=== PATIENT | female | born 1940 | race Caucasian/White ===

== ENCOUNTER 2019-07-08 03:39 | Inpatient (IN) ==
[2019-07-08] MEDS ORDERED: Ipratropium/Albuterol Neb 3 ML IH ONE (03:50)
[2019-07-08 04:23] LABS: Basophils # 0.1 K/mcL (0.0-0.2); Basophils % 0.5 %; Eosinophils # 0.1 K/mcL (0.0-0.6); Eosinophils % 1.2 %; Hematocrit 43.2 % (35.3-44.9); Hemoglobin 14.4 g/dL (11.5-15.4); Immature Granulocytes % 0.9 % (0-4); Lymphocytes # 2.9 K/mcL (0.6-4.6); Lymphocytes % 24.6 %; Mean Corpuscular HGB Conc 33.3 g/dL (31.6-35.5); Mean Corpuscular Hemoglobin 31.9 pg (28.0-33.3); Mean Corpuscular Volume 95.8 fL (83.0-100.0); Mean Platelet Volume 11.1 fL (9.4-12.4); Monocytes # 0.5 K/mcL (0.0-1.3); Monocytes % 4.6 %; Platelet Count 328 K/mcL (140-400); Red Blood Count 4.51 M/mcL (3.82-4.97); Red Cell Distribution Width 12.4 % (11.5-14.5); Segmented Neutrophils % 68.2 %; White Blood Count 11.7 K/mcL (4.3-11.1)
[2019-07-08 04:29] LABS: Prothrombin Time 10.8 Seconds (9.4-12.1)
[2019-07-08 04:31] LABS: Activated Partial Thrombo Time 26.1 Seconds (26.0-36.0)
[2019-07-08 04:33] LABS: ABG Base Excess -2 mEq/L (-2 to 3); ABG HCO3 24 mEq/L (21-27); ABG Oxygen Saturation 96 % (95-98); ABG PCO2 44 mmHg (35-45); ABG PH 7.34 pH Units (7.32-7.45); ABG PO2 84 mmHg (85-104); ABG TCO2 25 mEq/L (20-26)
[2019-07-08 04:44] LABS: Bilirubin,Urine Negative (Negative); Blood,Urine Small (Negative); Clarity,Urine Clear (Clear); Color,Urine Dark Yellow (Yellow); Glucose,Urine (UA) 500 mg/dL (Normal); Ketones,Urine 15 mg/dL (Negative); Leukocyte Esterase,Urine Negative (Negative); Nitrite,Urine Negative (Negative); PH,Urine 5.5 pH Units (5.0-8.0); Protein,Urine 100 mg/dL (Neg-Trace); Specific Gravity,Urine 1.015 (1.010-1.025); Urobilinogen,Urine Normal (Normal)
[2019-07-08 04:45] LABS: BUN/Creatinine Ratio 24 (6-26); Blood Urea Nitrogen 17 mg/dL (8-23); Calcium 9.2 mg/dL (8.6-10.3); Carbon Dioxide 24 mEq/L (23-29); Chloride 103 mEq/L (98-107); Glucose 212 mg/dL (70-105); Osmolality,Calculated 296 (280-300); Potassium 3.9 mEq/L (3.5-5.1); Sodium 139 mEq/L (136-145); eGFR For African Americans > 60 (> 60); eGFR For Non-African Americans > 60 (> 60)
[2019-07-08 04:46] LABS: Hyaline Casts,Urine Few per lpf (None-Few); Squamous Epithelial Cell,Urine Many per lpf (None-Few)
[2019-07-08] MEDS ORDERED: Furosemide 40 MG/4 ML VIAL IVP ONE (04:50)
[2019-07-08] MEDS ORDERED: Azithromycin 500 MG in 0.9 % Sodium Chloride 250 ML IVPB ONE (04:50)
[2019-07-08] MEDS ORDERED: cefTRIAXone 1,000 MG in Water for inj. (sterile) 10 ML IVP ONE (04:50)
[2019-07-08 04:52] LABS: Troponin I 0.05 ng/mL (< 0.04)
[2019-07-08] MEDS ORDERED: Aspirin 81 MG TAB.CHEW PO ONE (04:52)
[2019-07-08 04:55] LABS: Bacteria,Urine Moderate per hpf (None-Few)
[2019-07-08] MEDS ORDERED: Isovue-370 500 ML BOTTLE IVP ONE (04:55)
[2019-07-08] MEDS ORDERED: Ondansetron 4 MG/2 ML VIAL IVP ONE (05:49)
[2019-07-08] MEDS ORDERED: Naloxone 0.4 MG/ML INJ IVP PRN (09:21)
[2019-07-08] MEDS ORDERED: Acetaminophen 325 MG TABLET PO PRN (09:50)
[2019-07-08 13:01] LABS: Estimated Average Glucose 123 mg/dl
[2019-07-08] MEDS: *HR* Heparin 5,000 UNIT/ML VIAL SQ SCH (16:47)
[2019-07-08] MEDS ORDERED: carvediloL 6.25 MG TABLET PO SCH (17:00)
[2019-07-08] MEDS ORDERED: Ondansetron 4 MG/2 ML VIAL IVP PRN (19:50)
[2019-07-08] MEDS ORDERED: Melatonin 3 MG TABLET PO ONE (19:51)
[2019-07-09] MEDS: *HR* Heparin 5,000 UNIT/ML VIAL SQ SCH ×2 (05:37→17:37)
[2019-07-09 05:54] LABS: Basophils % 0.1 %; Eosinophils % 0.2 %; Hematocrit 38.9 % (35.3-44.9); Immature Granulocytes % 0.3 % (0-4); Lymphocytes # 1.5 K/mcL (0.6-4.6); Lymphocytes % 17.3 %; Mean Corpuscular HGB Conc 31.9 g/dL (31.6-35.5); Mean Corpuscular Hemoglobin 30.9 pg (28.0-33.3); Mean Platelet Volume 11.4 fL (9.4-12.4); Monocytes # 0.9 K/mcL (0.0-1.3); Monocytes % 10.5 %; Neutrophils # 6.3 K/mcL (1.6-8.9); Platelet Count 282 K/mcL (140-400); Red Blood Count 4.01 M/mcL (3.82-4.97); Red Cell Distribution Width 12.7 % (11.5-14.5); Segmented Neutrophils % 71.6 %; White Blood Count 8.8 K/mcL (4.3-11.1)
[2019-07-09 05:55] LABS: Prothrombin Time 11.6 Seconds (9.4-12.1)
[2019-07-09 05:59] LABS: Hemoglobin 12.4 g/dL (11.5-15.4)
[2019-07-09 06:12] LABS: BUN/Creatinine Ratio 34 (6-26); Blood Urea Nitrogen 24 mg/dL (8-23); Calcium 8.8 mg/dL (8.6-10.3); Carbon Dioxide 28 mEq/L (23-29); Chloride 102 mEq/L (98-107); Glucose 103 mg/dL (70-105); Osmolality,Calculated 294 (280-300); Potassium 3.7 mEq/L (3.5-5.1); Sodium 140 mEq/L (136-145); eGFR For African Americans > 60 (> 60); eGFR For Non-African Americans > 60 (> 60)
[2019-07-09 06:13] LABS: Alanine Aminotransferase 13 Units/L (7-52); Albumin 3.7 g/dL (3.5-5.7); Albumin/Globulin Ratio 1.6 (1.1-2.2); Alkaline Phosphatase 59 Units/L (34-104); Aspartate Amino Transferase 21 Units/L (13-39); BUN/Creatinine Ratio 37 (6-26); Bilirubin,Total 1.3 mg/dL (0.3-1.0); Blood Urea Nitrogen 25 mg/dL (8-23); Calcium 8.8 mg/dL (8.6-10.3); Carbon Dioxide 28 mEq/L (23-29); Chloride 103 mEq/L (98-107); Chol/HDL Ratio 4.5 (0-4.9); Cholesterol 204 mg/dL (< 200); Globulin 2.3 g/dL (2.4-3.5); Glucose 103 mg/dL (70-105); HDL Cholesterol 45 mg/dL (40-59); LDL Cholesterol,Calculated 132 mg/dL (0-99); Osmolality,Calculated 295 (280-300); Potassium 3.7 mEq/L (3.5-5.1); Sodium 140 mEq/L (136-145); Triglycerides 137 mg/dL (< 150); eGFR For African Americans > 60 (> 60); eGFR For Non-African Americans > 60 (> 60)
[2019-07-09] MEDS ORDERED: Isovue-370 500 ML BOTTLE IVP ONE (06:39)
[2019-07-09] MEDS ORDERED: 0.9 % Sodium Chloride 250 ML IVC ONE (07:00)
[2019-07-09 07:35] LABS: Estimated Average Glucose 126 mg/dl
[2019-07-09] MEDS ORDERED: Furosemide 40 MG/4 ML VIAL IVP SCH (09:00)
[2019-07-09] MEDS: Aspirin Enteric Coated 81 MG Tablet PO SCH (09:03)
[2019-07-09] MEDS: Multivit/Ca/Min/Fe/FA 1 TAB TABLET PO SCH (09:03)
[2019-07-10] MEDS ORDERED: *HR* HYDROcodone/Acet 5/325 mg TABLET PO ONE (01:22)
[2019-07-10] MEDS ORDERED: Acetaminophen IV 1,000 MG/100 ML INFUS..BTL IVPB ONE (01:26)
[2019-07-10] MEDS: *HR* Heparin 5,000 UNIT/ML VIAL SQ SCH ×2 (05:36→17:12)
[2019-07-10] MEDS: Multivit/Ca/Min/Fe/FA 1 TAB TABLET PO SCH (07:52)
[2019-07-10] MEDS: Aspirin Enteric Coated 81 MG Tablet PO SCH ×2 (07:52→11:53)
[2019-07-10] MEDS: D5% in 0.9% NACL 1,000 ML IVC SCH (11:53)
[2019-07-10] MEDS: Insulin LISPRO 300 UNITS/3 ML VIAL SQ SCH (17:12)
[2019-07-10] MEDS: Gabapentin 300 MG CAPSULE PO SCH (20:49)
[2019-07-11] MEDS: Insulin LISPRO 300 UNITS/3 ML VIAL SQ SCH ×3 (01:22→11:56)
[2019-07-11 06:21] LABS: Basophils % 0.4 %; Eosinophils # 0.1 K/mcL (0.0-0.6); Eosinophils % 1.2 %; Hematocrit 39.9 % (35.3-44.9); Hemoglobin 12.9 g/dL (11.5-15.4); Immature Granulocytes % 0.3 % (0-4); Lymphocytes # 1.7 K/mcL (0.6-4.6); Lymphocytes % 21.9 %; Mean Corpuscular HGB Conc 32.3 g/dL (31.6-35.5); Mean Corpuscular Hemoglobin 31.7 pg (28.0-33.3); Mean Platelet Volume 10.9 fL (9.4-12.4); Monocytes # 1.1 K/mcL (0.0-1.3); Monocytes % 14.3 %; Neutrophils # 4.9 K/mcL (1.6-8.9); Platelet Count 267 K/mcL (140-400); Red Blood Count 4.07 M/mcL (3.82-4.97); Red Cell Distribution Width 12.2 % (11.5-14.5); Segmented Neutrophils % 61.9 %; White Blood Count 7.8 K/mcL (4.3-11.1)
[2019-07-11 06:40] LABS: BUN/Creatinine Ratio 57 (6-26); Blood Urea Nitrogen 29 mg/dL (8-23); Calcium 8.9 mg/dL (8.6-10.3); Carbon Dioxide 28 mEq/L (23-29); Chloride 106 mEq/L (98-107); Glucose 107 mg/dL (70-105); Magnesium 2.2 mg/dL (1.6-2.6); Osmolality,Calculated 298 (280-300); Phosphorous 3.2 mg/dL (2.7-4.5); Potassium 3.8 mEq/L (3.5-5.1); Sodium 141 mEq/L (136-145); eGFR For African Americans > 60 (> 60); eGFR For Non-African Americans > 60 (> 60)
[2019-07-11] MEDS: *HR* Heparin 5,000 UNIT/ML VIAL SQ SCH ×2 (07:24→17:01)
[2019-07-11] MEDS: D5% in 0.9% NACL 1,000 ML IVC SCH (07:26)
[2019-07-11] MEDS: Gabapentin 300 MG CAPSULE PO SCH (09:38)
[2019-07-11] MEDS: Aspirin Enteric Coated 81 MG Tablet PO SCH (09:38)
[2019-07-11] MEDS: Multivit/Ca/Min/Fe/FA 1 TAB TABLET PO SCH (09:38)
[2019-07-11] MEDS: Nystatin SUSP 5 ML UD.LIQ PO SCH ×2 (12:01→17:01)
[2019-07-11] MEDS ORDERED: carvediloL 6.25 MG TABLET GTUBE SCH (17:00)
[2019-07-11] MEDS ORDERED: Insulin LISPRO 300 UNITS/3 ML VIAL SQ SCH (20:00)
[2019-07-11 20:08] VITALS: BP 181/78
[2019-07-11] MEDS ORDERED: Gabapentin 300 MG CAPSULE GTUBE SCH (21:00)
[2019-07-12] MEDS ORDERED: Multivitamin Liquid 15 ML UDC GTUBE SCH (09:00)
== END 2019-07-11 22:35 | disposition short-term general hospital (02) | DRG 64 ==
LOC: 2NENU 03:39 → EMEROOARM 03:39 → 2ANU 07:50 → SUATTDRO 10:30
PROVIDERS: ADMIT Internal Medicine; ATTEND Internal Medicine

== ENCOUNTER 2022-02-19 09:55 | Inpatient (IN) ==
[2022-02-19] MEDS ORDERED: Naloxone 0.4 MG/ML INJ IVP PRN ×2 (15:36→16:00)
[2022-02-19] MEDS ORDERED: Acetaminophen 325 MG TABLET PO PRN (15:36)
[2022-02-19 15:37] LABS: Basophils % 0.2 %; Eosinophils # 0.2 K/mcL (0.0-0.6); Eosinophils % 2.3 %; Hematocrit 32.9 % (35.3-44.9); Hemoglobin 10.4 g/dL (11.5-15.4); Immature Granulocytes % 0.3 % (0-4); Lymphocytes # 1.8 K/mcL (0.6-4.6); Lymphocytes % 18.4 %; Mean Corpuscular HGB Conc 31.6 g/dL (31.6-35.5); Mean Corpuscular Hemoglobin 30.8 pg (28.0-33.3); Mean Corpuscular Volume 97.3 fL (83.0-100.0); Mean Platelet Volume 11.3 fL (9.4-12.4); Monocytes # 1.3 K/mcL (0.0-1.3); Neutrophils # 6.5 K/mcL (1.6-8.9); Platelet Count 328 K/mcL (140-400); Red Blood Count 3.38 M/mcL (3.82-4.97); Segmented Neutrophils % 65.8 %; White Blood Count 9.9 K/mcL (4.3-11.1)
[2022-02-19 16:00] LABS: BUN/Creatinine Ratio 38 (6-26); Blood Urea Nitrogen 28 mg/dL (8-23); Calcium 9.2 mg/dL (8.6-10.3); Carbon Dioxide 26 mEq/L (23-29); Chloride 104 mEq/L (98-107); Glucose 87 mg/dL (70-105); Osmolality,Calculated 293 (280-300); Potassium 4.3 mEq/L (3.5-5.1); Sodium 139 mEq/L (136-145); eGFR For African Americans > 60 (> 60); eGFR For Non-African Americans > 60 (> 60)
[2022-02-19] MEDS ORDERED: D5% in Water 1,000 ML IVC PRN (19:52)
[2022-02-19] MEDS ORDERED: *HR* Dextrose 50 % in Water (Syg) 50 ML SYRINGE IVP PRN (19:52)
[2022-02-19] MEDS ORDERED: Dextrose Gel 15 GM/37.5 ML TUBE PO PRN ×2 (19:52)
[2022-02-19] MEDS ORDERED: Heparin 25,000UNIT/250ML 1/2NS 25,000 UNIT/250 ML IV.SOLN IVC SCH ×2 (20:15→20:26)
[2022-02-19] MEDS: *HR* HYDROcodone/Acet 5/325 mg TABLET PO PRN (20:45)
[2022-02-19] MEDS: Melatonin 3 MG TABLET PO PRN (20:46)
[2022-02-19] MEDS: Ondansetron ODT 4 MG TAB.RAPDIS SL PRN (22:51)
[2022-02-19] MEDS: carvediloL 6.25 MG TABLET PO SCH ×2 (22:53→22:55)
[2022-02-19 23:28] LABS: INR 1.5; Prothrombin Time 16.6 Seconds (9.4-12.1)
[2022-02-19 23:29] LABS: Activated Partial Thrombo Time 29.2 Seconds (26.0-36.0)
[2022-02-19 23:33] LABS: Heparin anti-factor XA UFH > 2.00 IU/mL (0.30-0.70)
[2022-02-20] MEDS: Insulin LISPRO 300 UNITS/3 ML VIAL SUBQ SCH ×4 (01:22→18:28)
[2022-02-20 06:21] LABS: Hematocrit 30.2 % (35.3-44.9); Hemoglobin 9.4 g/dL (11.5-15.4); Mean Corpuscular HGB Conc 31.1 g/dL (31.6-35.5); Mean Corpuscular Hemoglobin 30.5 pg (28.0-33.3); Mean Corpuscular Volume 98.1 fL (83.0-100.0); Mean Platelet Volume 10.9 fL (9.4-12.4); Platelet Count 284 K/mcL (140-400); Red Blood Count 3.08 M/mcL (3.82-4.97); White Blood Count 7.9 K/mcL (4.3-11.1)
[2022-02-20 06:37] LABS: Calcium 8.4 mg/dL (8.6-10.3); Potassium 4.6 mEq/L (3.5-5.1)
[2022-02-20] MEDS: Aspirin Enteric Coated 81 MG Tablet PO SCH (08:53)
[2022-02-20] MEDS: *HR* HYDROcodone/Acet 5/325 mg TABLET PO PRN (08:53)
[2022-02-20] MEDS: carvediloL 6.25 MG TABLET PO SCH ×2 (08:54→18:27)
[2022-02-20] MEDS: lisinopriL 10 MG TABLET PO SCH (09:29)
[2022-02-20] MEDS: Apixaban 5 MG TABLET PO SCH ×2 (09:29→20:44)
[2022-02-21] MEDS: Insulin LISPRO 300 UNITS/3 ML VIAL SUBQ SCH ×6 (01:49→21:37)
[2022-02-21 02:55] LABS: Hematocrit 28.6 % (35.3-44.9); Mean Corpuscular HGB Conc 31.5 g/dL (31.6-35.5); Mean Corpuscular Hemoglobin 30.8 pg (28.0-33.3); Mean Corpuscular Volume 97.9 fL (83.0-100.0); Mean Platelet Volume 11.2 fL (9.4-12.4); Platelet Count 288 K/mcL (140-400); Red Blood Count 2.92 M/mcL (3.82-4.97); White Blood Count 6.6 K/mcL (4.3-11.1)
[2022-02-21 04:08] LABS: Calcium 8.6 mg/dL (8.6-10.3); Potassium 4.3 mEq/L (3.5-5.1)
[2022-02-21] MEDS: Aspirin Enteric Coated 81 MG Tablet PO SCH (08:59)
[2022-02-21] MEDS: Apixaban 5 MG TABLET PO SCH ×2 (09:00→21:29)
[2022-02-21] MEDS: lisinopriL 10 MG TABLET PO SCH (09:02)
[2022-02-21] MEDS: carvediloL 6.25 MG TABLET PO SCH ×2 (09:02→16:58)
[2022-02-21] MEDS: *HR* HYDROcodone/Acet 5/325 mg TABLET PO PRN ×3 (09:12→22:23)
[2022-02-21 09:32] LABS: Estimated Average Glucose 117 mg/dl; Hemoglobin A1C 5.7 %
[2022-02-21] MEDS ORDERED: Ringers Solution, Lactated 1,000 ML IVC SCH (13:00)
[2022-02-21] MEDS: Ondansetron ODT 4 MG TAB.RAPDIS SL PRN (18:24)
[2022-02-22 02:17] LABS: Basophils % 0.3 %; Eosinophils # 0.1 K/mcL (0.0-0.6); Eosinophils % 1.2 %; Hematocrit 29.7 % (35.3-44.9); Hemoglobin 9.3 g/dL (11.5-15.4); Immature Granulocytes % 0.3 % (0-4); Lymphocytes # 1.4 K/mcL (0.6-4.6); Lymphocytes % 22.2 %; Mean Corpuscular HGB Conc 31.3 g/dL (31.6-35.5); Mean Corpuscular Hemoglobin 30.7 pg (28.0-33.3); Mean Platelet Volume 11.3 fL (9.4-12.4); Monocytes # 0.8 K/mcL (0.0-1.3); Monocytes % 12.6 %; Neutrophils # 4.1 K/mcL (1.6-8.9); Platelet Count 303 K/mcL (140-400); Red Blood Count 3.03 M/mcL (3.82-4.97); Red Cell Distribution Width 12.8 % (11.5-14.5); Segmented Neutrophils % 63.4 %; White Blood Count 6.4 K/mcL (4.3-11.1)
[2022-02-22 02:40] LABS: Alanine Aminotransferase 6 Units/L (7-52); Albumin 3.2 g/dL (3.5-5.7); Albumin/Globulin Ratio 1.3 (1.1-2.2); Alkaline Phosphatase 53 Units/L (34-104); Aspartate Amino Transferase 13 Units/L (13-39); BUN/Creatinine Ratio 41 (6-26); Bilirubin,Total 0.6 mg/dL (0.3-1.0); Blood Urea Nitrogen 37 mg/dL (8-23); Calcium 8.5 mg/dL (8.6-10.3); Carbon Dioxide 25 mEq/L (23-29); Chloride 105 mEq/L (98-107); Globulin 2.5 g/dL (2.4-3.5); Glucose 114 mg/dL (70-105); Osmolality,Calculated 294 (280-300); Potassium 4.6 mEq/L (3.5-5.1); Sodium 137 mEq/L (136-145); Total Protein 5.7 g/dL (6.4-8.9); eGFR For African Americans > 60 (> 60); eGFR For Non-African Americans 59 (> 60)
[2022-02-22] MEDS: Insulin LISPRO 300 UNITS/3 ML VIAL SUBQ SCH ×4 (08:04→21:45)
[2022-02-22] MEDS: Apixaban 5 MG TABLET PO SCH ×2 (08:11→21:48)
[2022-02-22] MEDS: Ondansetron ODT 4 MG TAB.RAPDIS SL PRN (08:11)
[2022-02-22] MEDS: *HR* HYDROcodone/Acet 5/325 mg TABLET PO PRN ×2 (08:11→21:49)
[2022-02-22] MEDS: carvediloL 6.25 MG TABLET PO SCH ×2 (08:11→17:51)
[2022-02-22] MEDS: Aspirin Enteric Coated 81 MG Tablet PO SCH (08:12)
[2022-02-22 11:11] LABS: Bacteria,Urine Few per hpf (None-Few); Bilirubin,Urine Negative (Negative); Blood,Urine Negative (Negative); Clarity,Urine Turbid (Clear); Color,Urine Yellow (Yellow); Glucose,Urine (UA) Normal (Normal); Ketones,Urine Trace mg/dL (Negative); Leukocyte Esterase,Urine Small (Negative); Mucus,Urine Few per lpf (None-Few); Nitrite,Urine Negative (Negative); PH,Urine 6.5 pH Units (5.0-8.0); Protein,Urine 30 mg/dL (Neg-Trace); RBC,Urine 0-3 per hpf (0-3); Specific Gravity,Urine 1.023 (1.010-1.025); Urobilinogen,Urine Normal (Normal); WBC,Urine 0-3 per hpf (0-3)
[2022-02-22] MEDS: Bisacodyl 10 MG RECTAL SUPPOSITORY RC SCH (12:27)
[2022-02-22] MEDS ORDERED: Ondansetron 4 MG/2 ML VIAL IVP PRN (17:34)
[2022-02-22] MEDS: Melatonin 3 MG TABLET PO PRN (21:48)
[2022-02-23 07:41] VITALS: TEMP 98.2
[2022-02-23] MEDS: Insulin LISPRO 300 UNITS/3 ML VIAL SUBQ SCH ×2 (08:20→11:39)
[2022-02-23] MEDS: carvediloL 6.25 MG TABLET PO SCH (08:35)
[2022-02-23] MEDS: Apixaban 5 MG TABLET PO SCH (08:36)
[2022-02-23] MEDS: Aspirin Enteric Coated 81 MG Tablet PO SCH (08:36)
[2022-02-23] MEDS: Bisacodyl 10 MG RECTAL SUPPOSITORY RC SCH (08:40)
[2022-02-23] MEDS: *HR* HYDROcodone/Acet 5/325 mg TABLET PO PRN (09:42)
[2022-02-23] MEDS: Ondansetron ODT 4 MG TAB.RAPDIS SL PRN (10:36)
[2022-02-23 11:06] VITALS: BP 133/54; PULSE 65; O2SAT 94
[2022-02-23 13:19] LABS: Adenovirus Not Detected (Not Detect); Bordetella Pertussis Not Detected (Not Detect); Chlamydophila pneumoniae Not Detected (Not Detect); Coronavirus 229E Not Detected (Not Detect); Coronavirus HKU1 Not Detected (Not Detect); Coronavirus NL63 Not Detected (Not Detect); Coronavirus OC43 Not Detected (Not Detect); Human Metapneumovirus Not Detected (Not Detect); Human Rhinovirus/Enterovirus Not Detected (Not Detect); Influenza A Subtype 2009 H1 Not Detected (Not Detect); Influenza B Not Detected (Not Detect); Mycoplasma pneumoniae Not Detected (Not Detect); Parainfluenza Virus 1 Not Detected (Not Detect); Parainfluenza Virus 2 Not Detected (Not Detect); Parainfluenza Virus 3 Not Detected (Not Detect); Parainfluenza Virus 4 Not Detected (Not Detect); Respiratory Syncytial Virus Not Detected (Not Detect); SARS-CoV-2 Not Detected (Not Detect)
== END 2022-02-23 17:54 | DRG 563 ==
LOC: EMEROOARM 09:55 → SUATTDRO 16:32 → 3ANU 16:32
PROVIDERS: ADMIT Student in an Organized Health Care Education/Training Program; ATTEND Family Medicine